=== PATIENT | female | born 1965 | race Caucasian/White ===

== ENCOUNTER 2017-12-30 13:11 | Inpatient (IN) | payer OTHER ==
[~2017-12-30] VITALS: Ht 162.6 cm; Wt 97.5 kg
--- NOTE | 2017-12-30 14:10 | RADIOLOGY REPORT ---
EXAMINATION: XR CHEST CLINICAL INFORMATION: Chest pain. COMPARISON: 12/13/2013. TECHNIQUE: 2 views of the chest were obtained. FINDINGS: Both lungs are symmetrically expanded, appear clear. The cardiomediastinal silhouette is within normal limit. There is no pleural effusion or pneumothorax present. Mild multilevel degenerative spondylosis is seen in the spine. The visualized upper abdomen is unremarkable. Overall, no significant change. IMPRESSION: No acute cardiopulmonary disease.
[2017-12-30 14:38] LABS: ABSOLUTE BASOPHIL COUNT 0 /CUMM (0.0-0.2); ABSOLUTE EOSINOPHIL COUNT 0 /CUMM (0.0-0.7); ABSOLUTE GRANULOCYTE CT 7.7 /CUMM (1.4-6.5); ABSOLUTE LYMPH COUNT 2.1 /CUMM (1.2-3.4); ABSOLUTE MONOCYTE COUNT 0.8 /CUMM (0.10-0.60); BASOPHIL % 0.4 % (0.0-2.0); EOSINOPHIL % 0.4 % (0-5); HEMATOCRIT 43.8 % (37-47); MEAN CORPUSCULAR HGB 30.2 PG (27.0-31.0); MEAN CORPUSCULAR HGB CONC 33.8 G/DL (33.0-37.0); MEAN CORPUSCULAR VOLUME 89.3 FL (81.0-99.0); MEAN PLATELET VOLUME 7.4 FL (7.4-10.4); PLATELET COUNT 302 /CUMM (130-400); RBC DISTRIBUTION WIDTH 12.8 % (11.5-14.5); RED BLOOD CELL CT 4.91 /CUMM (4.20-5.40); WHITE BLOOD CELL COUNT 10.7 /CUMM (4.8-10.8)
--- NOTE | 2017-12-30 15:05 | ED GENERAL ADULT ---
History of Present Illness General Chief Complaint: Chest Pain Stated Complaint: CP; NEAR SYNCOPE; DIZZINESS Source: patient, family Exam Limitations: no limitations Vital Signs & Intake/Output Vital Signs & Intake/Output Vital Signs Date Time Temp Pulse Resp B/P B/P Pulse O2 O2 Flow FiO2 Mean Ox Delivery Rate 12/30 1438 97 Room Air 12/30 1428 98.3 66 20 105/58 98 Room Air 12/30 1324 98.1 83 22 127/81 98 Allergies Coded Allergies: Sulfa (Sulfonamide Antibiotics) (Intermediate, FULL BODY RASH 03/04/17) Triage Note: PT PRESENTS TO THE ER C/O CHEST PAIN AND SOB..PT STATES THAT SHE STARTED TO HAVE ANXIETY AT 0130 THIS AM AND TOOK A XANAX, THE ANXIETY ESCALADED AND PT STATES CP AND SOB STARTED. PT STATES THAT THE SOB IS VERY BAD AND MAKES HER CHEST PAIN WORSE.. Triage Nurses Notes Reviewed? yes Onset: Abrupt Duration: day(s): Timing: recent history HPI: 12/30/17 5 PM 52-year-old female presents to the emergency department for chest pain. The patient states she had an episode of chest pain that occurred yesterday. She was unable to sleep during the night and had nausea. Today the pain persisted so she came to the emergency department. Currently she denies any pain 0 out of 10. She says she has mild tightness. Past History Travel History Traveled to [place] past 21 day No Medical History Any Pertinent Medical History? 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 Yes (MOM AFIB, FMI IN 30'S) Review of Systems Review of Systems Constitutional: Denies: fever. EENTM: Denies: visual changes. Respiratory: Denies: short of breath. Cardiovascular: Reports: chest pain. GI: Reports: nausea. Genitourinary: Reports: no symptoms. Musculoskeletal: Reports: muscle pain. Skin: Denies: rash. Neurological/Psychological: Reports: no symptoms. Hematologic/Endocrine: Reports: no symptoms. Immunologic/Allergic: Reports: no symptoms. Physical Exam Physical Exam General Appearance: alert, awake, anxious, mild distress Head: atraumatic, normal appearance Eyes: Bilateral: normal appearance, PERRL, EOMI. Ears, Nose, Throat: normal pharynx, normal ENT inspection Neck: normal inspection, supple Respiratory: normal breath sounds, chest non-tender, no respiratory distress Cardiovascular: regular rate/rhythm Peripheral Pulses: 4+ radial (R), 4+ radial (L) Gastrointestinal: soft, non-tender Back: normal range of motion Extremities: no edema Neurologic/Psych: no motor/sensory deficits, awake, alert, oriented x 3 Skin: intact, normal color, warm/dry Core Measures ACS in differential dx? Yes CVA/TIA Diagnosis: No Sepsis Present: No Sepsis Focused Exam Completed? No Progress Differential Diagnoses I considered the following diagnoses in my evaluation of the patient: [Non-ST segment elevation NC, pulmonary embolism] Plan of Care: Orders Procedure Date/time Status Heart Healthy Diet 12/31 B Active TROPONIN LEVEL 12/31 1999 Active EKG 12/31 1999 Active Patient Data 12/30 1643 Active Hold all sedatives 12/30 1640 Active Admit to inpatient 12/30 1640 Active Vital Signs 12/30 1640 Active Code Status 12/30 1640 Active Intake & Output 12/30 1437 Active TROPONIN LEVEL 12/30 1321 Complete D-DIMER 12/30 1321 Complete COMPREHENSIVE METABOLIC PANEL 12/30 1321 Complete CBC WITHOUT DIFFERENTIAL 12/30 1321 Complete EKG 12/30 1312 Active Laboratory Tests 12/30/17 1418: Anion Gap 11, Estimated GFR > 60, BUN/Creatinine Ratio 15.0, Glucose 100 H, Calcium 9.8, Total Bilirubin 0.7, AST 36, ALT 29, Alkaline Phosphatase 68, Troponin I 1.50 *H, Total Protein 7.3, Albumin 4.2, Globulin 3.1, Albumin/ Globulin Ratio 1.4, D-Dimer High Sensitivty < 200, CBC w Diff NO MAN DIFF REQ, RBC 4.91, MCV 89.3, MCH 30.2, MCHC 33.8, RDW 12.8, MPV 7.4, Gran % 72.0, Lymphocytes % 19.9 L, Monocytes % 7.3, Eosinophils % 0.4, Basophils % 0.4, Absolute Granulocytes 7.7 H, Absolute Lymphocytes 2.1, Absolute Monocytes 0.8 H, Absolute Eosinophils 0, Absolute Basophils 0 Initial ED EKG: NSR Departure Departure Disposition: STILL A PATIENT Condition: Stable Clinical Impression Primary Impression: NSTEMI (non-ST elevated myocardial infarction) Referrals: Kendall Mcclain MD (PCP/Family) Departure Forms: Customer Survey General Discharge Information Comments PATIENT: RAIZA MICHAEL PRESENT AGE: 52 PATIENT ACCOUNT NO: [id number] : 64 LOCATION: ER ORDERING PHYSICIAN: Jerry SANTOS SERVICE DATE: 12/30/17 EXAM TYPE: RAD - XRY-CHEST XRAY, TWO VIEWS EXAMINATION: XR CHEST CLINICAL INFORMATION: Chest pain. COMPARISON: 12/13/2013. TECHNIQUE: 2 views of the chest were obtained. FINDINGS: Both lungs are symmetrically expanded, appear clear. The cardiomediastinal silhouette is within normal limit. There is no pleural effusion or pneumothorax present. Mild multilevel degenerative spondylosis is seen in the spine. The visualized upper abdomen is unremarkable. Overall, no significant change. IMPRESSION: No acute cardiopulmonary disease. DICTATED BY: Jonny Thao MD DATE/TIME DICTATED:12/30/171405 RIVET TOSSER:DANI DATE/TIME TRANSCRIBED:12/30/171405 CONFIDENTIAL, DO NOT COPY WITHOUT APPROPRIATE AUTHORIZATION. <Electronically signed in Other Vendor System> SIGNED BY: Jonny Thao MD 12/30/17 1410 Admission Note Spoke With: Shanae Anglin MD Documentation of Exam: Documentation of any treatments & extenuating circumstances including Concerns Regarding Discharge (functional status, medication knowledge or non-compliance, living conditions, etc.) that warrant an admission rather than observation: [The patient needs admission for telemetry monitoring, serial troponins, cardiology consultation. I spoke with Dr. Murguia. He requested the patient be admitted to the ICU for 24 hours.] Critical Care Note Critical Care Note Critical Care Time: 30-74 min
--- NOTE | 2017-12-30 16:48 | History & Physical ---
Vandana Calhoun 12/30/17 1648: General Information and HPI MD Statement: I have seen and personally examined RAIZA MICHAEL and documented this H&P. The patient is a 52 year old F who presented with a patient stated chief complaint of [chest pain]. Source of Information: patient, family Exam Limitations: no limitations History of Present Illness: Patient is 52-year-old female with past medical history of chronic bronchitis, GERD, hiatal hernia, anxiety came in with a chief complaint of chest tightness. Patient states that she was in her usual state of health yesterday however she developed chest tightness when she was going up the flight of stairs around 8 PM. Patient states that the chest pain was pressure-like, and radiating to her left jaw and left shoulder. It was also associated with shortness of breath. Later the chest pain worsened when she went for a walk. Patient states that all this time, she was having palpitations which lasted about 20 minutes. Around 12 :30 AM, patient took 1 tablet of alprazolam and went to bed. This morning when she called Dr. Mcclain to explain her symptoms, she was asked to come to ER. Of note the gave patient a loading dose of aspirin last night at home. Patient's family history significant for heart attack in father at the age of 39 , she does not follow with any career services director and has never had any stress test/ PCI. Review of system is positive for dizziness, nausea however patient denies any headache, abdominal pain/discomfort, burning micturition, pain or swelling in bilateral lower extremity. Patient states that she has had 3 bowel movements today which were formed. 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 Exam & Diagnostic Data Last 24 Hrs of Vital Signs/I&O Vital Signs Date Time Temp Pulse Resp B/P B/P Pulse O2 O2 Flow FiO2 Mean Ox Delivery Rate 12/30 1438 97 Room Air 12/30 1428 98.3 66 20 105/58 98 Room Air 12/30 1324 98.1 83 22 127/81 98 Intake & Output 12/30 1600 12/30 0800 12/30 0000 Intake Total 0 Output Total Balance 0 Intake, Oral 0 Patient 97.522 kg Weight Weight Reported by Patient Measurement Method Physical Exam General Appearance Alert, Oriented X3, Cooperative, No Acute Distress Skin No Rashes, No Breakdown HEENT Atraumatic Neck Supple Cardiovascular Regular Rate, Normal S1, Normal S2 Lungs Clear to Auscultation, Normal Air Movement Abdomen Normal Bowel Sounds, Soft, No Tenderness Extremities No Cyanosis, No Edema Sepsis Peripheral Pulse Location: Radial Sepsis Peripheral Pulse Exam: Normal Last 24 Hrs of Labs/Ladarius: Laboratory Tests 12/30/17 1418: Anion Gap 11, Estimated GFR > 60, BUN/Creatinine Ratio 15.0, Glucose 100 H, Calcium 9.8, Total Bilirubin 0.7, AST 36, ALT 29, Alkaline Phosphatase 68, Troponin I 1.50 *H, Total Protein 7.3, Albumin 4.2, Globulin 3.1, Albumin/ Globulin Ratio 1.4, Triglycerides 93, Cholesterol 227 H, LDL Cholesterol, Calc 166 H, HDL Cholesterol 43, Cholesterol/HDL Ratio 5 H, D-Dimer High Sensitivty < 200, CBC w Diff NO MAN DIFF REQ, RBC 4.91, MCV 89.3, MCH 30.2, MCHC 33.8, RDW 12.8, MPV 7.4, Gran % 72.0, Lymphocytes % 19.9 L, Monocytes % 7.3, Eosinophils % 0.4, Basophils % 0.4, Absolute Granulocytes 7.7 H, Absolute Lymphocytes 2.1, Absolute Monocytes 0.8 H, Absolute Eosinophils 0, Absolute Basophils 0 Assessment/Plan Assessment: Patient is 52-year-old female with past medical history of chronic bronchitis, GERD, hiatal hernia, anxiety came in with a chief complaint of chest tightness. Patient states that she was in her usual state of health yesterday however she developed chest tightness when she was going up the flight of stairs around 8 PM. Patient states that the chest pain was pressure-like, and radiating to her left jaw and left shoulder. It was also associated with shortness of breath. Later the chest pain worsened when she went for a walk. Patient states that all this time, she was having palpitations which lasted about 20 minutes. Around 12 :30 AM, patient took 1 tablet of alprazolam and went to bed. This morning when she called Dr. Mcclain to explain her symptoms, she was asked to come to ER. Of note the gave patient a loading dose of aspirin last night at home. Patient's family history significant for heart attack in father at the age of 39 , she does not follow with any career services director and has never had any stress test/ PCI. Labs and vitals as above. Of note troponin 1.5 at 2 PM, Chest x-ray normal EKG normal sinus rhythm, heart rate 73, Q wave in inferior leads, T-wave prominence in week 23 4, QTC 424 Assessment and plan We'll admit the patient in ICU for NSTEMI. She got a loading dose of aspirin yesterday, will continue her on 81 aspirin daily, will start her on heparin drip , patient is aware that she has a history of high cholesterol but is refusing statin as her father developed myalgias secondary to that, will recheck fasting lipid panel in a.m., will order echocardiogram. Please follow-up troponin and EKG at 8 [address] Murguia is consulted, will keep the patient nothing by mouth for a possible cardiac cath in a.m. Patient takes alprazolam 1 tablet 0.5 mg twice a day as needed will continue. Since her heart rate is fluctuating between 6683, will hold off metoprolol for now and reevaluate in a.m. DVT prophylaxis IV heparin Patient is full code As Ranked By This Provider Problem List: 1. NSTEMI (non-ST elevated myocardial infarction) Core Measures/Misc (02/16) Acute Coronary Syndrome ACS Diagnosis: Yes No MANISH/ARB d/t ef unknown No Beta-Zhanna d/t Bradycardia No Statin d/t Medication Refused Congestive Heart Failure Congestive Heart Failure Diagnosis No Cerebrovascular Accident CVA/TIA Diagnosis: No VTE (View Protocol) VTE Risk Factors Age>40 No Mechanical VTE Prophylaxis d/t N/A MechProphylax Ordered No VTE Pharm Prophylaxis d/t NA PharmProphylax ordered Sepsis (View protocol) Sepsis Present: No If YES complete Sepsis Event Note If YES complete Sepsis Event Note Derrek BETANCOURT,Shanae 12/30/17 1745: Core Measures/Misc (02/16) Sepsis (View protocol) If YES complete Sepsis Event Note If YES complete Sepsis Event Note Attending MD Review Statement Attending Statement Attending MD Statement: examined this patient, discuss w/resident/PA/NUCLEAR OPERATIONS SPECIALIST, agreed w/resident/PA/NUCLEAR OPERATIONS SPECIALIST, reviewed EMR data (avail), discussed with nursing, reviewed images Attending Assessment/Plan: 52-year-old female past medical history of anxiety, GERD, hiatal hernia and panic attacks who is here with complaints of substernal chest pain, nausea, shortness of breath and severe anxiety. The symptoms started when she exerted herself and the history is fairly typical for ACS. In addition patient has a strong family history of CAD with her father having his first KY at age 39. In the emergency room she was noted to have a troponin of 1.5 with nonspecific T- wave inversions.. At this point will treat her as a non-ST elevation [place]. We'll bring her to the ICU, start on aspirin and IV heparin. Patient is refusing a statin. She says her father had a severe side effect and reaction to it, we explained at length but she persists in refusing. We'll have Dr. Murguia see her and keep her nothing by mouth after midnight for possible cath in a.m., her heart rate is too low for a beta zhanna at this point and will need to watch that.
--- NOTE | 2017-12-30 17:49 | Admission Certification ---
Admission Certification Certification Statement - As attending physician, I certify that at the time of - admission, based on clinical presentation, severity of - symptoms, need for further diagnostic testing and - therapeutic interventions, and risk of adverse outcomes - without in-hospital treatment, in my clinical assessment, - this patient requires an acute hospital stay for a minimum - of two nights or longer. I have also considered psychsocial - factors such as support system, advanced age, financial - issues, cognitive issues, and failed out-patient treatments, - past re-admission history, safety of patient, and lack of - compliance as applicable. Specific rationale supporting this admission is: Acute NSTEMI
[2017-12-30] MEDS ORDERED: ALPRAZOLAM0.5 M4 PO (18:14)
--- NOTE | 2017-12-30 19:33 | Cons- Cardiology ---
General Information and HPI Consulting Request Date of Consult: 12/30/17 Requested By: Shanae Anglin MD History of Present Illness: Julianne is a 52 year old female with history of overweight and gastritis. She also carries a familty history of premature coronary artery disease with her father having an AK in his late thirties. Last evening, this patient noted the sudden onset of a moderate chest tightness radiating toward her left neck. It was a prolonged discomfort and became worse with exertiona. There is no pleuritic component to it. It was associated wtih nausea and diaphoresis. She also reports shortness of breath, lightheadedness and palpitations which are not typical symptoms for her. It should be note that this patient does have GERD symptoms and symptoms of gastritis but these are clearly different symptoms. In the ER the patient was found to have a positive troponin. Allergies/Medications Allergies: Coded Allergies: Sulfa (Sulfonamide Antibiotics) (Intermediate, FULL BODY RASH 03/04/17) Home Med List: Alprazolam 0.5 MG TABLET 1 TAB PO BIDP PRN ANXIETY (Reported) Review of Systems Review of Systems: A review of systems is unremarkable. 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 Surgical History Surgical History: non-contributory Exam & Diagnostic Data Vital Signs and I&O Vital Signs Date Time Temp Pulse Resp B/P B/P Pulse O2 O2 Flow FiO2 Mean Ox Delivery Rate 12/30 1834 98.1 85 20 128/56 96 Room Air 12/30 1438 97 Room Air 12/30 1428 98.3 66 20 105/58 98 Room Air 12/30 1324 98.1 83 22 127/81 98 Intake & Output 12/30 1600 12/30 0800 12/30 0000 12/29 1600 12/29 0812/29 0000 Intake Total 0 Output Total Balance 0 Intake, Oral 0 Patient 215 lb Weight Weight Reported by Patient Measurement Method Physical Exam: General: WD/overweight female in NAD; alert and oriented x 3 HEENT: NC/AT, PERRL, EOMI Neck: no JVD, no carotid bruit Heart: RRR without murmur Lungs: clear bilaterally Abdomen: soft, obese, NT, +ve bowel sounds Extremities: no edema Assessment/Plan Assessment/Plan * This patient has evidence of a NSTEMI. Follow cardiac enzymes until they peak and obtain an echocardiogram. * Begin anticoagulation with aspirin 325mg daily, Plavix 75mg after a 300mg loading dose and IV heparin. * Begin NTG paste 1/2 inch Q 6 hrs. Begin Metoprolol 12.5mg BID. Begin a statin. * Begin O2 2 L by NC. Consult Acknowledgment - Thank you for your consult request.
[2017-12-31 00:50] LABS: PTT 42 SEC (25-37)
[2017-12-31 02:00] VITALS: BP 138/62
--- NOTE | 2017-12-31 04:03 | Event Note ---
Event Note Event Note: S -Patients troponins increased to 4.67 at 02:05. EKG did not demonstrate any signfiicant changes. Patient demonstrated mild chest discomfort. Topical nitro- bid 0.5gm given with improvement. B -Patient is a 52 year old female with pmh of chronic bronchitis, GERD, hiatal hernia and anxiety who came into the ED for complaint of chest tightness. Patient has signficant family history of heart attack in father at age 39. Patient has had increasing troponins and admitted to ICU for NSTEMI. Cardiology had been consulted, keeping patient on aspirin, plavix and IV heparin. AR -Given patients recent admission for NSTEMi on heparin drip, aspirin and plavix, patients troponin elevation is further clarification for possible cardiac cath in the morning. * continue to trend ekg/troponin until peak * continue aspirin, plavix, IV heparin * npo for cardiac cath in the morning * nitro prn for pain
--- NOTE | 2017-12-31 07:10 | Discharge Summary ---
Visit Information Visit Dates Admission Date: 12/30/17 Discharge Date: 12/31/17 Hospital Course Course Attending Physician: Derrek BETANCOURT,Shanae Kirkpatrick Primary Care Physician: Sarahi BETANCOURT,Kendall Preston Hospital Course: 52-year-old female with past medical history of chronic bronchitis, GERD, hiatal hernia, anxiety came in with a chief complaint of chest tightness. Patient states that she was in her usual state of health until one day prior to admission, however she developed chest tightness when she was going up the flight of stairs around 8 PM last night. Patient states that the chest pain was pressure-like, and radiating to her left jaw and left shoulder. It was also associated with shortness of breath. Later the chest pain worsened when she went for a walk. It was associated with palpitations which lasted for 20 minutes . The following morning the patient called her PCP Dr. Mcclain to explain her symptoms, she was asked to come to ER. Of note the gave patient a loading dose of aspirin the day prior to admission Patient's family history significant for heart attack in father at the age of 39 , she does not follow with any customer service advocate and has never had any stress test/ PCI. Review of system is positive for dizziness, nausea however patient denies any headache, abdominal pain/discomfort, burning micturition, pain or swelling in bilateral lower extremity. Patient states that she has had 3 bowel movements today which were formed. ED course: Labs and vitals as above. Of note troponin 1.5 at 2 PM, Chest x-ray normal EKG normal sinus rhythm, heart rate 73, Q wave in inferior leads, T-wave prominence in week 23 4, QTC 424 She was admitted to the ICU for NSTEMI, she received a loading dose of Plavix 300 mg, to be followed with Plavix 75 mg, in addition to aspirin 325 and IV heparin drip. Patient was also kept on nitroglycerin paste half inch every 6 hours and metoprolol 12.5 mg twice daily, statin was started . In addition she was kept on oxygen by nasal cannula. Her heart rate was fluctuating between 6683, metoprolol was held Dr. Murguia was consulted and he recommended keeping the patient n.p.o. overnight for cardiac cath in the morning. Pt will be transferred for cardiac cath at [facility] While in the ICU patient troponin increased to 4.67 at at 02:05 then increased to 6.36 at 6 AM, EKG did not demonstrate any signfiicant changes. Patient demonstrated mild chest discomfort. Topical nitro-bid 0.5gm given with improvement. Allergies: Coded Allergies: Sulfa (Sulfonamide Antibiotics) (Intermediate, FULL BODY RASH 03/04/17) propofol (Mild, HYPOTENSION 12/31/17) Uncoded Allergies: NARCOTICS (Mild, SENSITIVE 12/31/17) Disposition Summary Disposition Principal Diagnosis: NSTEMI Additional Diagnosis: Hyperlipidemia Discharge Disposition: other general hospital Discharge Instructions General Discharge Information Code Status: Full Code Patient's Diet: NPO Patient's Activity: As tolerated Follow-Up Instructions/Appts: Please follow-up with your customer service advocate in 1 week of discharge Medications at Discharge Discharge Medications: Continue taking these medications: Alprazolam (Alprazolam) 0.5 MG TABLET 1 Tablet ORAL 2 x Daily as needed as needed for ANXIETY Qty = 10 Start taking the following new medications: Clopidogrel Bisulfate (Plavix) 75 MG TABLET 75 Milligram ORAL DAILY Qty = 30 No Refills [Lipitor] 40 Milligram ORAL 5 PM Qty = 30 No Refills Nitroglycerin (Nitrostat) 0.4 MG TAB.SUBL 0.4 Milligram SUBLINGUAL EVERY 5 MINUTES X 3 DOSES as needed for CHEST PAIN Qty = 30 No Refills Metoprolol Tartrate (Metoprolol Tartrate) 25 MG TABLET 0.5 Tablet ORAL TWICE DAILY Qty = 30 No Refills Aspirin (Aspirin*) 325 MG TABLET 1 Tablet ORAL DAILY Qty = 30 No Refills Heparin (Heparin-1/2NS 25,000 Units/500) 25,000 UNIT/500 ML (50 UNIT/ML) IV.SOLN 0 IV CONTINUOUS INFUSION Qty = 1 No Refills Instructions: PTT bolous stop change next PTT hr <45 60units/kg 0 increase 4 units/kg/h 6 45-55 30units/kg 0 increase 2 units/kg/h 6 56-80 0 0 no change 12 81-100 0 0 decrease 2 units/kg/h 6 >100 0 60 decrease 4 units/kg/h 6 Copies To: Kendall Mcclain MD
--- NOTE | 2017-12-31 07:12 | Patient Discharge Instructions ---
Discharge Instructions General Discharge Information You were seen/treated for: chest pain Special Instructions: You are being transferred for cardiac catheterization Diet Recommended Diet: NPO for now Activity Activity Self Limited: Yes Acute Coronary Syndrome Inclusion Criteria At DC or during hospital stay patient has or had the following: ACS DIAGNOSIS Yes Discharge Core Measures Meds if any: Prescribed or Continued at Discharge Meds if any: NOT Prescribed or Continued at Discharge Congestive Heart Failure Inclusion Criteria At DC or during hospital stay patient has or had the following: CHF DIAGNOSIS No Discharge Core Measures Meds if any: Prescribed or Continued at Discharge Meds if any: NOT Prescribed or Continued at Discharge Cerebrovascular accident Inclusion Criteria At DC or during hospital stay patient has or had the following: CVA/TIA Diagnosis No Discharge Core Measures Meds if any: Prescribed or Continued at Discharge Meds if any: NOT Prescribed or Continued at Discharge Venous thromboembolism Inclusion Criteria VTE Diagnosis No VTE Type NONE VTE Confirmed by (Test) NONE Discharge Core Measures - Per Current guidelines, there needs to be overlap - treatment for the first 5 days of Warfarin therapy. - If discharged on Warfarin prior to 5 days of - overlap therapy, the patient will need to be - assessed for post discharge needs including - *Post discharge parental anticoagulation - *Warfarin and/or parental anticoagulation education - *Follow up date to check INR post discharge At least 5 days overlap therapy as Inpatient No Meds if any: Prescribed or Continued at Discharge Note: Overlap Therapy is Warfarin and Anticoagulant Meds if any: NOT Prescribed or Continued at Discharge
[2017-12-31] MEDS ORDERED: NITROSTAT0.4 M1 SL (07:13)
[2017-12-31] MEDS ORDERED: PLAVIX75 M1 PO (07:13)
[2017-12-31] MEDS ORDERED: Lipitor PO (07:13)
--- NOTE | 2017-12-31 07:23 | Cons- CRCU ---
Won BETANCOURT,[facility] 12/31/17 0723: General Information and HPI History of Present Illness: 52-year-old female with past medical history of chronic bronchitis, GERD, hiatal hernia, anxiety came in with a chief complaint of chest tightness. Patient states that she was in her usual state of health until one day prior to admission, however she developed chest tightness when she was going up the flight of stairs around 8 PM last night. Patient states that the chest pain was pressure-like, and radiating to her left jaw and left shoulder. It was also associated with shortness of breath. Later the chest pain worsened when she went for a walk. It was associated with palpitations which lasted for 20 minutes . The following morning the patient called her PCP Dr. Mcclain to explain her symptoms, she was asked to come to ER. 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 Review of system is positive for dizziness, nausea however patient denies any headache, abdominal pain/discomfort, burning micturition, pain or swelling in bilateral lower extremity. Patient states that she has had 3 bowel movements today which were formed. ED course: Labs and vitals as above. Of note troponin 1.5 at 2 PM, Chest x-ray normal EKG normal sinus rhythm, heart rate 73, Q wave in inferior leads, T-wave prominence in week 23 4, QTC 424 She was admitted to the ICU for NSTEMI, she received a loading dose of Plavix 300 mg, to be followed with Plavix 75 mg, in addition to aspirin 325 and IV heparin drip. Patient was also kept on nitroglycerin paste half inch every 6 hours and metoprolol 12.5 mg twice daily, statin was started . In addition she was kept on oxygen by nasal cannula. Her heart rate was fluctuating between 6683, metoprolol was held Dr. Murguia was consulted and he recommended keeping the patient n.p.o. overnight for cardiac cath in the morning. Pt will be transferred for cardiac cath at [facility] While in the ICU patient troponin increased to 4.67 at at 02:05 then increased to 6.36 at 6 AM, EKG did not demonstrate any signfiicant changes. Patient demonstrated mild chest discomfort. Topical nitro-bid 0.5gm given with improvement. Allergies/Medications Allergies: Coded Allergies: Sulfa (Sulfonamide Antibiotics) (Intermediate, FULL BODY RASH 03/04/17) propofol (Mild, HYPOTENSION 12/31/17) Uncoded Allergies: NARCOTICS (Mild, SENSITIVE 12/31/17) Home Med List: Alprazolam 0.5 MG TABLET 1 TAB PO BIDP PRN ANXIETY (Reported) Aspirin (Aspirin*) 325 MG TABLET 1 TAB PO DAILY cHEST PAIN Clopidogrel Bisulfate (Plavix) 75 MG TABLET 75 MG PO DAILY BLOOD THINNER Heparin (Heparin-1/2NS 25,000 Units/500) 25,000 UNIT/500 ML (50 UNIT/ML) IV.SOLN 0 IV CONTINOUS INFUSION ACS PTT bolous stop change next PTT hr <45 60units/kg 0 increase 4 units/kg/h 6 45-55 30units/kg 0 increase 2 units/kg/h 6 56-80 0 0 no change 12 81-100 0 0 decrease 2 units/kg/h 6 >100 0 60 decrease 4 units/kg/h 6 [Lipitor] 40 MG PO 1700 CHOLESTEROL Metoprolol Tartrate 25 MG TABLET 0.5 TAB PO BID ACS Nitroglycerin (Nitrostat) 0.4 MG TAB.SUBL 0.4 MG SL Q 5 MINUTES X 3 DOSE PRN CHEST PAIN Review of Systems Review of Systems Constitutional: Reports: see HPI. 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 Home Smoking Status: Never Smoked Exam & Diagnostic Data Last 24 Hrs of Vital Signs/I&O Vital Signs Date Time Temp Pulse Resp B/P B/P Pulse O2 O2 Flow FiO2 Mean Ox Delivery Rate 12/31 0917 74 124/70 12/31 08 98 Nasal 2.0L Cannula 12/31 08 97.7 90 22 122/80 98 Nasal 2.0L Cannula 12/31 0200 93 Room Air 12/31 020 99.5 72 16 138/62 93 Room Air 12/31 0046 96.6 76 20 117/58 12/31 0041 96.6 76 20 117/58 95 Room Air 12/30 2207 98.1 81 20 138/84 97 Room Air 12/30 1834 98.1 85 20 128/56 96 Room Air 12/30 1438 97 Room Air 12/30 1428 98.3 66 20 105/58 98 Room Air 12/30 1324 98.1 83 22 127/81 98 Intake & Output 12/31 1600 12/31 0800 12/31 0000 Intake Total 518 Output Total Balance 518 Intake, IV 318 Intake, Oral 200 Patient 215 lb Weight Weight Reported by Patient Measurement Method Physical Exam General Appearance: well developed/nourished, no apparent distress, alert, awake Head: atraumatic, normal appearance Neck: normal inspection, supple Respiratory: normal breath sounds, chest non-tender Cardiovascular: regular rate/rhythm Last 48 Hrs of Labs/Ladarius: Laboratory Tests 12/31/17 0825: Troponin I 6.36 *H 12/31/17 0825: Anion Gap 12, Estimated GFR > 60, Glucose 105 H, Calcium 8.7, Phosphorus 2.7, Magnesium 1.9, Total Bilirubin 1.1, AST 56 H, ALT 37, Albumin 3.8, APTT 94 H, CBC w Diff NO MAN DIFF REQ, RBC 4.51, MCV 89.4, MCH 30.7, MCHC 34.4, RDW 12.6, MPV 7.7, Gran % 63.2, Lymphocytes % 26.6, Monocytes % 8.1, Eosinophils % 1.6, Basophils % 0.5, Absolute Granulocytes 6.4, Absolute Lymphocytes 2.7, Absolute Monocytes 0.8 H, Absolute Eosinophils 0.2, Absolute Basophils 0.1 12/31/17 0600: Sodium Cancelled, Potassium Cancelled, Chloride Cancelled, Carbon Dioxide Cancelled, Anion Gap Cancelled, BUN Cancelled, Creatinine Cancelled, BUN/ Creatinine Ratio Cancelled, CBC w Diff Cancelled, WBC Cancelled, RBC Cancelled, Hgb Cancelled, Hct Cancelled, MCV Cancelled, MCH Cancelled, MCHC Cancelled, RDW Cancelled, Plt Count Cancelled, MPV Cancelled 12/31/17 0205: Troponin I 4.67 *H 12/31/17 0030: APTT 42 H 12/30/171999: Troponin I 2.81 *H 12/30/17 1418: Anion Gap 11, Estimated GFR > 60, BUN/Creatinine Ratio 15.0, Glucose 100 H, Calcium 9.8, Total Bilirubin 0.7, AST 36, ALT 29, Alkaline Phosphatase 68, Troponin I 1.50 *H, Total Protein 7.3, Albumin 4.2, Globulin 3.1, Albumin/ Globulin Ratio 1.4, Triglycerides 93, Cholesterol 227 H, LDL Cholesterol, Calc 166 H, HDL Cholesterol 43, Cholesterol/HDL Ratio 5 H, D-Dimer High Sensitivty < 200, CBC w Diff NO MAN DIFF REQ, RBC 4.91, MCV 89.3, MCH 30.2, MCHC 33.8, RDW 12.8, MPV 7.4, Gran % 72.0, Lymphocytes % 19.9 L, Monocytes % 7.3, Eosinophils % 0.4, Basophils % 0.4, Absolute Granulocytes 7.7 H, Absolute Lymphocytes 2.1, Absolute Monocytes 0.8 H, Absolute Eosinophils 0, Absolute Basophils 0 Assessment/Plan CRCU Impression/Plan: ED course: Labs and vitals as above. Of note troponin 1.5 at 2 PM, Chest x-ray normal EKG normal sinus rhythm, heart rate 73, Q wave in inferior leads, T-wave prominence in week 23 4, QTC 424 She was admitted to the ICU for NSTEMI, she received a loading dose of Plavix 300 mg, to be followed with Plavix 75 mg, in addition to aspirin 325 and IV heparin drip. Patient was also kept on nitroglycerin paste half inch every 6 hours and metoprolol 12.5 mg twice daily, statin was started . In addition she was kept on oxygen by nasal cannula. Her heart rate was fluctuating between 6683, metoprolol was held Dr. Murguia was consulted and he recommended keeping the patient n.p.o. overnight for cardiac cath in the morning. Pt will be transferred for cardiac cath at [facility] While in the ICU patient troponin increased to 4.67 at 02:05 then increased to 6.36 at 6 AM, EKG did not demonstrate any signfiicant changes. Patient demonstrated mild chest discomfort. Topical nitro-bid 0.5gm given with improvement. Consult Acknowledgment - Thank you for your consult request. Chavez BETANCOURT,Kyle Borja 12/31/17 0821: General Information and HPI Consulting Request Date of Consult: 12/31/17 Requested By: Dr. Mcfadden Reason for Consult: Management of acute non-ST elevation OR. Source of Information: patient, old records Exam Limitations: no limitations Allergies/Medications Current Medications: Current Medications Sig/Pau Start time Last Medication Dose Route Stop Time Status Admin Acetaminophen 650 MG Q8P PRN 12/30 1815 AC PO Alprazolam 0.5 MG BID PRN 12/30 1815 AC PO 01/06 1814 Aspirin 81 MG DAILY 12/31 0900 DC PO Aspirin 81 MG DAILY 12/30 1745 AC 12/30 PO 1745 Aspirin 0 .STK-MED ONE 12/30 1734 DC PO Aspirin 325 MG ONCE ONE 12/30 1715 CAN PO 12/30 1716 Atorvastatin Calcium 40 MG 1700 12/30 171 AC PO Clopidogrel Bisulfate 225 MG ONCE ONE 12/31 0315 DC 12/31 PO 12/31 0316 0306 Clopidogrel Bisulfate 225 MG ONCE ONE 12/30 2330 DC PO 12/30 2331 Clopidogrel Bisulfate 75 MG DAILY 12/30 1850 AC 12/30 PO 2131 Dextrose/Sodium 1,000 ML Q20H 12/31 0230 AC 12/31 Chloride IV 0237 Heparin Sodium 25,000 UNIT Q24H 12/30 1800 AC 12/30 (Porcine) IV 1851 Sodium Chloride 500 ML Metoprolol Tartrate 12.5 MG BID 12/30 2322 AC PO Nitroglycerin 1 GM Q6 12/30 2359 DC TOP Nitroglycerin 0.5 GM Q6 12/30 2359 AC 12/31 TOP 0657 Nitroglycerin 1 GM Q6 PRN 12/30 1716 DC TOP 12/30 2358 Nitroglycerin 0.4 MG Q 5 MINUTES X 3 DO.. 12/30 1715 AC SL Pantoprazole Sodium 40 MG ONCE ONE 12/31 07 DC IV 12/31 07 Assessment/Plan CRCU Other Findings/Comments: I have personally seen and examined the patient, and agree with the housestaff's assessment and plan as detailed above. Briefly, the patient is a 52-year-old female with a history significant for anxiety, GERD, hiatal hernia and panic attacks. The patient was admitted overnight with complaints of substernal chest pain, nausea, shortness of breath and severe anxiety. Family history is positive for CAD in the patient's father who had his first OR at age 39. The patient presented to the ED for evaluation of her symptoms noting she was found to have a positive troponin of 1.5 with nonspecific T-wave inversions. The patient was started on aspirin and IV heparin but refusing statins. She remains on a heparin drip. Beta-blockers were held due to bradycardia. EKG this morning is pending. Cardiology has been consulted. The patient is n.p.o. in anticipation of a possible cardiac catheterization. We will await further recommendations from Dr. Murguia. We will continue all supportive care. Consult Acknowledgment - Thank you for your consult request.
[2017-12-31] MEDS ORDERED: HEPARIN-1/25000 UNI1 IV (07:25)
[2017-12-31] MEDS ORDERED: ASPIRIN81 M4 PO (07:27)
[2017-12-31] MEDS ORDERED: METOPROLOL TART25 M1 PO (07:27)
[2017-12-31 08:00] VITALS: BP 122/80
[2017-12-31 08:50] LABS: ABSOLUTE BASOPHIL COUNT 0.1 /CUMM (0.0-0.2); ABSOLUTE EOSINOPHIL COUNT 0.2 /CUMM (0.0-0.7); ABSOLUTE GRANULOCYTE CT 6.4 /CUMM (1.4-6.5); ABSOLUTE LYMPH COUNT 2.7 /CUMM (1.2-3.4); ABSOLUTE MONOCYTE COUNT 0.8 /CUMM (0.10-0.60); BASOPHIL % 0.5 % (0.0-2.0); EOSINOPHIL % 1.6 % (0-5); GRANULOCYTE % 63.2 % (42.2-75.2); HEMATOCRIT 40.3 % (37-47); MEAN CORPUSCULAR HGB 30.7 PG (27.0-31.0); MEAN CORPUSCULAR HGB CONC 34.4 G/DL (33.0-37.0); MEAN CORPUSCULAR VOLUME 89.4 FL (81.0-99.0); MEAN PLATELET VOLUME 7.7 FL (7.4-10.4); PLATELET COUNT 274 /CUMM (130-400); RBC DISTRIBUTION WIDTH 12.6 % (11.5-14.5); RED BLOOD CELL CT 4.51 /CUMM (4.20-5.40); WHITE BLOOD CELL COUNT 10.2 /CUMM (4.8-10.8)
[2017-12-31 08:59] LABS: PTT 94 SEC (25-37)
[2017-12-31 09:17] VITALS: BP 124/70
--- NOTE | 2017-12-31 09:43 | PN- Cardiology ---
Subjective Subjective: * Patient has felt nauseated today. No current chest pain. * Cardiac enzymes are going up. Objective Vital Signs and I&Os Vital Signs Date Time Temp Pulse Resp B/P B/P Pulse O2 O2 Flow FiO2 Mean Ox Delivery Rate 12/31 916 74 124/70 12/31 0200 93 Room Air 12/31 0200 99.5 72 16 138/62 93 Room Air 12/31 0046 96.6 76 20 117/58 12/31 0041 96.6 76 20 117/58 95 Room Air 12/30 2207 98.1 81 20 138/84 97 Room Air 12/30 1834 98.1 85 20 128/56 96 Room Air 12/30 1438 97 Room Air 12/30 1428 98.3 66 20 105/58 98 Room Air 12/30 1324 98.1 83 22 127/81 98 Intake & Output 12/31 1600 12/31 0800 12/31 0000 12/30 1600 12/30 0800 12/30 0000 Intake Total 518 0 Output Total Balance 518 0 Intake, IV 318 Intake, Oral 200 0 Patient 215 lb 215 lb Weight Weight Reported by Patient Reported by Patient Measurement Method Physical Exam: General: WD/overweight female in NAD; alert and oriented x 3 HEENT: NC/AT, PERRL, EOMI Neck: no JVD, no carotid bruit Heart: RRR without murmur Lungs: clear bilaterally Abdomen: soft, obese, NT, +ve bowel sounds Extremities: no edema Assessment/Plan Assessment/Plan * This patient has evidence of a NSTEMI with enzymes that are trending up. We will transfer this patient to [facility] for a cardiac catheterization today. Follow cardiac enzymes until they peak and obtain an echocardiogram. * Continue anticoagulation with aspirin 325mg daily, IV heparin and Plavix 75mg . * Continue NTG paste 1/2 inch Q 6 hrs, Metoprolol 12.5mg BID and a statin. Continue telemetry? Yes
[2017-12-31] MEDS ORDERED: ASPIRIN325 M2 PO (10:24)
== END 2017-12-31 12:17 | disposition short-term general hospital (02) | DRG 190 ==
LOC: ERH 13:11 → CRI 16:40 → ERHI 16:40 → ENRESERV 23:43 → CRI 12-31 01:25
PROVIDERS: Emergency Medicine; Internal Medicine Interventional Cardiology; Nuclear Medicine Nuclear Cardiology; Physician Assistant Medical
DX: I21.4 Non-ST elevation (NSTEMI) myocardial infarction (principal); E78.00 Pure hypercholesterolemia, unspecified; K44.9 Diaphragmatic hernia without obstruction or gangrene; K21.9 Gastro-esophageal reflux disease without esophagitis; F41.9 Anxiety disorder, unspecified; Z88.2 Allergy status to sulfonamides; Z82.49 Family history of ischemic heart disease and other diseases of the circulatory system; E66.3 Overweight; Z68.36 Body mass index [BMI] 36.0-36.9, adult; Z88.4 Allergy status to anesthetic agent; Z88.5 Allergy status to narcotic agent
CPT/HCPCS: ERO; 36415; 36592; 71046; 82436; 93005; 93010; 99291; J1644; J2405; J3101; J3490; J7042